=== PATIENT | female | born 2005 | race Caucasian/White ===

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

== ENCOUNTER 2023-09-01 18:36 | Emergency (ER) | payer SELFPAY ==
[~2023-09-01] VITALS: Ht 157.5 cm; Wt 90.9 kg
[~2023-09-01 18:36] MED LIST changes: +PROZAC 20MG20 MG PO; +VYVANSE20 MG PO
[2023-09-01 18:51] VITALS: TEMP 98.1
[2023-09-01 20:02] VITALS: BP 127/90; PULSE 97
== END 2023-09-01 20:02 | disposition home or self-care (01) ==
LOC: COL.ER 18:36
DX: S09.90XA Unspecified injury of head, initial encounter (principal); S13.4XXA Sprain of ligaments of cervical spine, initial encounter; S00.01XA Abrasion of scalp, initial encounter; M54.2 Cervicalgia; V49.59XA Passenger injured in collision with other motor vehicles in traffic accident, initial encounter; Y92.410 Unspecified street and highway as the place of occurrence of the external cause